=== PATIENT | female | born 1990 | race Caucasian/White ===

== ENCOUNTER → 2018-03-08 | Outpatient (CLI) | payer OTHER ==
[~2018-03-08] MED LIST: BUPRTAB PO; CEPH500C PO; ETON1IMP2 INTRAD; LEVO100T7 PO; OXYC-90 PO
--- NOTE | 2018-03-08 09:48 | DIAGNOSTIC IMAGING REPORT ---
MRI THE LEFT ANKLE NO CONTRAST CLINICAL HISTORY: Left ankle skin ulceration status post surgery COMPARISON STUDY: Conventional radiograph dated 01/22/2018 FINDINGS: Imaging was performed in the sagittal, axial, and coronal planes. The patient is status post a lateral metallic plating of a distal fibular fracture. This results in significant ferromagnetic artifact due to magnetic field inhomogeneity. The soft tissues adjacent to the distal fibula cannot be evaluated due to the overlying artifact. There are no marrow signal abnormalities within the tibia given the limitations of the study. IMPRESSION: 1. Postsurgical changes and artifact secondary to distal fibular orthopedic plating 2. The reported cutaneous lesions located at the level of the surgery are not visible on MRI secondary to artifact from the metallic plating. Electronically signed by: Oren Comer M.D. 03/08/2018 9:47 AM Dictated Date/Time: 03/08/2018 9:08 AM
== END | disposition home or self-care (01) ==
LOC: C.MRI 07:45
PROVIDERS: ATTEND Emergency Medicine
DX: S81.802A Unspecified open wound, left lower leg, initial encounter (principal); X58.XXXA Exposure to other specified factors, initial encounter

== ENCOUNTER 2018-03-26 20:29 | Emergency (ER) | payer OTHER ==
[~2018-03-26] VITALS: Ht 160 cm; Wt 88.0 kg
[~2018-03-26 20:29] MED LIST changes: -CLIN300C2 PO; -IBUP-1050 PO
[2018-03-26 20:32] VITALS: TEMP 36.8; Ht 160 cm; Wt 88.0 kg
[2018-03-26] MEDS ORDERED: SODIUM CHLORIDE 0.9% 1000ML 1,000 ML IV STA (21:13)
--- NOTE | 2018-03-26 21:49 | EMERGENCY ROOM VISIT NOTE ---
ED Visit Note First contact with patient: 20:47 CHIEF COMPLAINT: Left ankle pain, redness and swelling HISTORY OF PRESENTING ILLNESS: This is a 27-year-old female who presents to the emergency department by private vehicle with concern for postsurgical infection of her left ankle. She states that she has been having increasing pain over the past 4-5 days, she noticed that the area became red and swollen yesterday and has gotten progressively worse today. She describes the pain as a deep stabbing pain, constant, worse with walking in the ankle, better with rest, currently rates as 9/10. She has had some low-grade fevers of 99.5 with chills and associated nausea, and has been feeling weak, states "I just do not feel good today." She had ORIF with a plate and screws [address] Rendon. She states that she did develop some wounds over the incision and was followed by the wound clinic for this, she states she had wound cultures and was treated with a course of Keflex, which fully healed up the wound on her skin. She completed antibiotics 1 week ago. She states that the pain started a few days after stopping the antibiotics. She denies any open wounds or drainage from the incision site currently. She denies any symptoms of headaches , neck pain or stiffness, chest pain, shortness of breath, dizziness or syncope , abdominal pain, back pain, numbness or tingling of the extremities, urinary symptoms, or unusual rash. Patient states that she was seen by Dr. Rendon in clinic this morning, had blood work done which is pending per patient, she states that her pain and redness has gotten worse since being seen this morning , and she was feeling so terrible, which prompted her to seek evaluation in the ED. REVIEW OF SYSTEMS: A complete 10 point review of systems was reviewed with the patient with pertinent positives and negatives as per history of present illness. All else were negative. PAST MEDICAL HISTORY: Hypothyroidism, depression. Ankle surgery as above. SOCIAL HISTORY: Lives at home. She is a current everyday smoker. ALLERGIES: Reviewed in chart, see below. PHYSICAL EXAM: CONSTITUTIONAL: Pleasant and cooperative. No acute distress and nontoxic- appearing. Mildly dehydrated, but otherwise well appearing and well nourished. HEENT: Normocephalic, atraumatic. Pupils equal, round and reactive to light, EOMI. TMs normal. Pharynx normal. Tacky mucous membranes. NECK: Supple, full active range of motion without discomfort. RESPIRATORY: Clear to auscultation bilaterally with no wheezing, crackles, rhonchi or stridor. Equal expansion bilaterally. CARDIOVASCULAR: Regular rate and rhythm with no murmurs, rubs or gallops. Normal peripheral perfusion. No edema. GASTROINTESTINAL: Soft, nontender, nondistended. No palpable masses or HSM. Bowel sounds present in all quadrants. MUSCULOSKELETAL: There is a well-healed surgical incision on the lateral aspect of the left ankle. There is circumferential erythema and edema of the left ankle extending to the dorsum of the foot, hot to touch, tender to palpation. Indurated, but no areas of fluctuance, pointing, or drainage. Increased pain with ROM of the left ankle. Full range of motion of all other joints without discomfort. INTEGUMENTARY: No rash or other significant dermatologic conditions noted. NEUROLOGIC: Alert and oriented X 4 with normal affect. Normal strength and sensation in all 4 extremities. No focal neurologic deficits noted. Normal speech. ED COURSE AND MEDICAL DECISION MAKING: CC: Patient presenting with complaint of left ankle pain, redness, swelling, concern for postoperative infection DIFFERENTIAL DIAGNOSIS: Includes, but not limited to cellulitis, postsurgical infection, osteomyelitis, abscess, sepsis/bacteremia, among others. INTERPRETATION OF LABS: Mild leukocytosis with left shift, no anemia, normal platelets, no significant electrolyte abnormalities, normal renal function, normal liver enzymes. Coagulation factors within normal limits. Elevated CRP, ESR normal. Serum negative. IMAGING: L ANKLE MIN 3 VIEWS ROUTINE CLINICAL HISTORY: Evaluate post-op infection, osteomyelitis. COMPARISON: Left ankle radiographs January 22, 2018 and MRI of the left ankle March 08, 2018. FINDINGS: Distal left fibular plate and screws are noted. Hardware is intact. There is no unexpected radiopaque foreign body. Moderate lateral ankle soft tissue swelling is noted. Fracture alignment appears anatomic. Fracture line remains evident. Interval healing is noted. There is no ankle mortise widening. There is no radiographic evidence of osteomyelitis. IMPRESSION: 1. Status post distal left fibular internal fixation. Hardware intact. No radiographic evidence of osteomyelitis. Anatomic alignment of fracture. Partial interval healing. Fracture line nearly imperceptible. 2. Moderate lateral ankle soft tissue swelling. MEDICATION RECONCILIATION: I attest that I have personally reviewed the patient 's current medication list. INITIAL VITAL SIGNS REVIEW: I reviewed the patient's initial vital signs and interpret them as follows: T: Afebrile; BP: Hypertensive; HR: Within normal limits; RR: Within normal limits; Pulse Ox: Within normal limits on room air. Blood pressure screening: The patient was found to have an elevated blood pressure, which was felt to be situational. SUMMARY: Patient was evaluated at bedside, history and physical exam performed. Patient is alert and oriented, in no acute distress, resting calmly in the stretcher. There is moderate swelling, erythema, and warmth of the left ankle, circumferential, tender to palpation. No drainage from the incision site, no open wounds or fluctuance appreciated. Orders were placed at bedside for labs, blood cultures 2 and lactic acid, IV fluids for hydration, IV Toradol for pain, ankle x-ray to evaluate for osteomyelitis and hardware integrity. Patient discussed with Dr. Crawford, who agrees with my assessment and plan. Labs and imaging reviewed as above. Mild leukocytosis with elevated CRP. No evidence of osteomyelitis on x-ray and fracture appears to be well-healed. I spoke with Dr. Ford, Orthopedic Surgery, he recommended giving IV dose of clindamycin and sending out on PO clindamycin to trial outpatient antibiotic course, and have her return for worsening symptoms. Patient reassessed multiple times throughout ED stay, she has remained stable, afebrile, and reports her pain is improved with Toradol. Patient was updated on all results and plan for discharge, she was comfortable with this plan. She was encouraged to follow closely with her orthopedic surgeon, she has a scheduled appointment this week. Rx for clindamycin was sent to the pharmacy and the patient was educated regarding this medication. Patient was also given strict return precautions should her symptoms worsen, she verbalized understanding. Skin marking of the cellulitic area was performed prior to discharge. Patient was discharged home in stable condition and ambulatory. Current/Historical Medications Scheduled Bupropion Hcl (Wellbutrin Xl), 150 MG PO QAM Clindamycin Hcl (Cleocin), 300 MG PO QID Etonogestrel (Nexplanon), 68 MG INTRAD UD Levothyroxine Sodium (Levothyroxine Sodium), 100 MCG PO DAILY Allergies Coded Allergies: Sulfa Antibiotics (Verified Allergy, Mild, [facility], 01/22/18) Vital Signs Date Time Temp Pulse Resp B/P (MAP) Pulse Ox O2 Delivery O2 Flow Rate FiO2 03/26/18 23:42 81 18 131/84 99 03/26/18 22:04 78 03/26/18 20:32 36.8 90 16 151/112 96 Room Air Laboratory Results 03/26/18 21:38 Red Blood Count 4.32, Mean Corpuscular Volume 85.0, Mean Corpuscular Hemoglobin 27.8, Mean Corpuscular Hemoglobin Concent 32.7, Mean Platelet Volume 9.7, Neutrophils (%) (Auto) 59.7, Lymphocytes (%) (Auto) 30.3, Monocytes (%) (Auto) 6.1, Eosinophils (%) (Auto) 3.2, Basophils (%) (Auto) 0.3, Neutrophils # (Auto) 6.70, Lymphocytes # (Auto) 3.40, Monocytes # (Auto) 0.69, Eosinophils # (Auto) 0.36, Basophils # (Auto) 0.03 03/26/18 21:38 Test 03/26/18 21:38 White Blood Count 11.22 K/uL (4.8-10.8) Red Blood Count 4.32 M/uL (4.2-5.4) Hemoglobin 12.0 g/dL (12.0-16.0) Hematocrit 36.7 % (37-47) Mean Corpuscular Volume 85.0 fL (80-100) Mean Corpuscular Hemoglobin 27.8 pg (25-34) Mean Corpuscular Hemoglobin Concent 32.7 g/dl (32-36) Platelet Count 309 K/uL (130-400) Mean Platelet Volume 9.7 fL (7.4-10.4) Neutrophils (%) (Auto) 59.7 % Lymphocytes (%) (Auto) 30.3 % Monocytes (%) (Auto) 6.1 % Eosinophils (%) (Auto) 3.2 % Basophils (%) (Auto) 0.3 % Neutrophils # (Auto) 6.70 K/uL (1.4-6.5) Lymphocytes # (Auto) 3.40 K/uL (1.2-3.4) Monocytes # (Auto) 0.69 K/uL (0.11-0.59) Eosinophils # (Auto) 0.36 K/uL (0-0.5) Basophils # (Auto) 0.03 K/uL (0-0.2) RDW Standard Deviation 44.7 fL (36.4-46.3) RDW Coefficient of Variation 14.2 % (11.5-14.5) Immature Granulocyte % (Auto) 0.4 % Immature Granulocyte # (Auto) 0.04 K/uL (0.00-0.02) Erythrocyte Sedimentation Rate 18 mm/hr (0-21) Prothrombin Time 10.0 SECONDS (9.0-12.0) Prothromb Time International Ratio 1.0 (0.9-1.1) Activated Partial Thromboplast Time 29.4 SECONDS (21.0-31.0) Partial Thromboplastin Ratio 1.1 Anion Gap 10.0 mmol/L (3-11) Est Creatinine Clear Calc Drug Dose 138.0 ml/min Estimated GFR () 142.0 Estimated GFR (Non- 122.5 BUN/Creatinine Ratio 13.5 (10-20) Lactic Acid Level 1.8 mmol/L (0.4-2.0) Calcium Level 8.3 mg/dl (8.5-10.1) Total Bilirubin 0.2 mg/dl (0.2-1) Aspartate Amino Transf (AST/SGOT) 12 U/L (15-37) Alanine Aminotransferase (ALT/SGPT) 26 U/L (12-78) Alkaline Phosphatase 88 U/L (45-117) C-Reactive Protein 4.34 mg/dl (0-0.29) Total Protein 7.3 gm/dl (6.4-8.2) Albumin 3.5 gm/dl (3.4-5.0) Globulin 3.8 gm/dl (2.5-4.0) Albumin/Globulin Ratio 0.9 (0.9-2) Human Chorionic Gonadotropin, Qual NEG (NEG) Medications Administered Medications (Trade) Dose Ordered Sig/Sergo Route Start Time Stop Time Status Last Admin Dose Admin Sodium Chloride 1,000 ml @ 999 mls/hr Q1H1M STAT IV 03/26/18 21:13 03/26/18 22:13 DC 03/26/18 21:57 999 MLS/HR Clindamycin Phosphate (Cleocin 600mg/ 54ml D5W) 600 mg ONE ONCE IV 03/26/18 23:15 03/26/18 23:16 DC 03/26/18 23:14 600 MG Ketorolac Tromethamine (Toradol Inj) 15 mg NOW STAT IV 03/26/18 23:17 03/26/18 23:18 DC 03/26/18 23:18 15 MG Departure Information Impression Primary Impression: Cellulitis of right ankle Dispostion Home / Self-Care Condition GOOD Prescriptions Clindamycin Hcl (CLEOCIN) 300 Mg Cap 300 MG PO QID for 7 Days, #28 CAP Prov: Elvia Acevedo CRNP 03/26/18 Referrals Raymond Jamison MD (PCP) Patient Instructions ED Infec Skin Cellulitis, [facility] Additional Instructions You were seen in the Emergency Department for cellulitis of your left ankle. You have been prescribed clindamycin to be taken 4 times a day for 7 days. This medication is an antibiotic. Stop this medication and contact a medical provider if you were to develop any significant adverse side effects including: wheezing, shortness of breath, passing out, vomiting, or a diffuse rash. Always take antibiotics as directed and COMPLETE the ENTIRE course regardless of the improvement of your symptoms. Look for signs of worsening infection of the wound including: increased pain, worsening swelling, foul discharge, spreading redness or streaking up the leg, fevers >100.5, or feeling ill. If any of these are noticed you should return to the Emergency Department for further assessment and treatment. For pain control, you can use the following [id number] medicines (if >12 yo): - Extra strength (500mg/tab) Tylenol (acetaminophen) 1-2 tabs every 6-8 hours as needed. Do not exceed 6 tablets in a 24 hour period. Avoid taking more than 3 grams (3000 mg) of Tylenol per day. This includes any other sources of acetaminophen you may take on a regular basis. - Regular strength (200 mg/tab) Advil (ibuprofen) 3 tabs every 6 hours as needed. Do not exceed a dose of 2400 mg per day. - For best results, alternate between Tylenol and Advil every 3-4 hours. Apply warm compresses to the area to help with pain and also to help improve the infection. Keep leg elevated as much as possible to help reduce swelling. Follow up with your surgeon at your scheduled appointment next week, or sooner for any worsening symptoms. Return to the emergency department if your symptoms worsen despite treatment course outlined above. Work Instructions Return To Work: 3 days
[2018-03-26 21:54] LABS: BASO % 0.3 %; BASO ABS # 0.03 K/uL (0-0.2); EOS % 3.2 %; EOS ABS # 0.36 K/uL (0-0.5); HEMATOCRIT 36.7 % (37-47); IG# 0.04 K/uL (0.00-0.02); LYMPH % 30.3 %; MEAN CORPUSCULAR HEMOGLOBIN 27.8 pg (25-34); MEAN CORPUSCULAR HGB CONC 32.7 g/dl (32-36); MEAN PLATELET VOLUME 9.7 fL (7.4-10.4); MONO % 6.1 %; MONO ABS # 0.69 K/uL (0.11-0.59); NEUT % 59.7 %; PLATELET COUNT 309 K/uL (130-400); RED CELL DISTRIBUTION WIDTH CV 14.2 % (11.5-14.5); RED CELL DISTRIBUTION WIDTH SD 44.7 fL (36.4-46.3); WHITE BLOOD COUNT 11.22 K/uL (4.8-10.8)
[2018-03-26 22:09] LABS: PTT PATIENT 29.4 SECONDS (21.0-31.0)
--- NOTE | 2018-03-26 22:11 | DIAGNOSTIC IMAGING REPORT ---
L ANKLE MIN 3 VIEWS ROUTINE CLINICAL HISTORY: Evaluate post-op infection, osteomyelitis. COMPARISON: Left ankle radiographs January 22, 2018 and MRI of the left ankle March 08, 2018. FINDINGS: Distal left fibular plate and screws are noted. Hardware is intact. There is no unexpected radiopaque foreign body. Moderate lateral ankle soft tissue swelling is noted. Fracture alignment appears anatomic. Fracture line remains evident. Interval healing is noted. There is no ankle mortise widening. There is no radiographic evidence of osteomyelitis. IMPRESSION: 1. Status post distal left fibular internal fixation. Hardware intact. No radiographic evidence of osteomyelitis. Anatomic alignment of fracture. Partial interval healing. Fracture line nearly imperceptible. 2. Moderate lateral ankle soft tissue swelling. Electronically signed by: Herman Hampton M.D. 03/26/2018 10:10 PM Dictated Date/Time: 03/26/2018 10:07 PM
[2018-03-26 22:13] LABS: ALBUMIN 3.5 gm/dl (3.4-5.0); CALCIUM 8.3 mg/dl (8.5-10.1); CREATININE 0.65 mg/dl (0.60-1.20); POTASSIUM 3.8 mmol/L (3.5-5.1); TOTAL PROTEIN 7.3 gm/dl (6.4-8.2)
[2018-03-26] MEDS ORDERED: CLIN300C2 PO (23:10)
[2018-03-26] MEDS ORDERED: CLINDAMYCIN 600 MG/54 ML D5W IV ONE (23:15)
[2018-03-26] MEDS ORDERED: KETOROLAC TROMETHAMINE 15 MG/ML VIAL ONE (23:15)
[2018-03-26] MEDS ORDERED: KETOROLAC TROMETHAMINE 30 MG/ML VIAL IV STA (23:17)
[2018-03-26 23:42] VITALS: BP 131/84; PULSE 81; O2SAT 99
== END 2018-03-26 23:42 | disposition home or self-care (01) ==
LOC: C.EDB 20:30 → C.EDA 23:42
DX: L03.115 Cellulitis of right lower limb (principal); E86.0 Dehydration; Z98.890 Other specified postprocedural states; E03.9 Hypothyroidism, unspecified; F32.9 Major depressive disorder, single episode, unspecified; Z79.3 Long term (current) use of hormonal contraceptives; F17.200 Nicotine dependence, unspecified, uncomplicated; Z88.2 Allergy status to sulfonamides

== ENCOUNTER → 2018-03-26 | Outpatient (CLI) | payer OTHER ==
[~2018-03-26] MED LIST changes: -CEPH500C PO; +CLIN300C2 PO; +IBUP-1050 PO
[2018-03-26 14:36] LABS: BASO % 0.3 %; BASO ABS # 0.03 K/uL (0-0.2); EOS % 2.6 %; HEMATOCRIT 38.8 % (37-47); IG# 0.04 K/uL (0.00-0.02); LYMPH % 24.3 %; LYMPH ABS # 2.75 K/uL (1.2-3.4); MEAN CELL VOLUME 85.7 fL (80-100); MEAN CORPUSCULAR HEMOGLOBIN 28.7 pg (25-34); MEAN CORPUSCULAR HGB CONC 33.5 g/dl (32-36); MEAN PLATELET VOLUME 9.6 fL (7.4-10.4); MONO % 5.7 %; MONO ABS # 0.65 K/uL (0.11-0.59); NEUT % 66.7 %; NEUT ABS # 7.56 K/uL (1.4-6.5); PLATELET COUNT 327 K/uL (130-400); RED CELL DISTRIBUTION WIDTH CV 14.3 % (11.5-14.5); RED CELL DISTRIBUTION WIDTH SD 45.1 fL (36.4-46.3); WHITE BLOOD COUNT 11.33 K/uL (4.8-10.8)
== END | disposition home or self-care (01) ==
LOC: C.LAB 13:55
DX: Z96.7 Presence of other bone and tendon implants (principal)

== ENCOUNTER → 2018-03-31 | Outpatient (CLI) | payer OTHER ==
[~2018-03-31] MED LIST changes: +ACET-24 PO; +CEPH500C2 PO; +CLIN300C2 PO; +IBUP-1050 PO; -OXYC-90 PO; +RXC5 PO
--- NOTE | 2018-03-31 10:33 | DIAGNOSTIC IMAGING REPORT ---
TWO VIEW CHEST CLINICAL HISTORY: Preoperative examination. FINDINGS: PA and lateral chest radiographs are obtained. No prior studies are available for comparison at the time of dictation. The cardiomediastinal silhouette is unremarkable. The lungs and pleural spaces are clear. There is no pneumothorax. The bony thorax appears intact. IMPRESSION: No active disease in the chest. Electronically signed by: Ashish Jim M.D. 03/31/2018 10:32 AM Dictated Date/Time: 03/31/2018 10:31 AM
[2018-03-31 11:10] LABS: BASO % 0.5 %; BASO ABS # 0.04 K/uL (0-0.2); EOS % 2.4 %; EOS ABS # 0.18 K/uL (0-0.5); HEMATOCRIT 38.3 % (37-47); HEMOGLOBIN 12.7 g/dL (12.0-16.0); IG# 0.03 K/uL (0.00-0.02); LYMPH % 32.3 %; LYMPH ABS # 2.44 K/uL (1.2-3.4); MEAN CELL VOLUME 84.9 fL (80-100); MEAN CORPUSCULAR HEMOGLOBIN 28.2 pg (25-34); MEAN CORPUSCULAR HGB CONC 33.2 g/dl (32-36); MEAN PLATELET VOLUME 9.8 fL (7.4-10.4); MONO % 5.8 %; MONO ABS # 0.44 K/uL (0.11-0.59); NEUT % 58.6 %; NEUT ABS # 4.43 K/uL (1.4-6.5); PLATELET COUNT 388 K/uL (130-400); RED CELL DISTRIBUTION WIDTH CV 13.8 % (11.5-14.5); RED CELL DISTRIBUTION WIDTH SD 42.5 fL (36.4-46.3); WHITE BLOOD COUNT 7.56 K/uL (4.8-10.8)
== END | disposition home or self-care (01) ==
LOC: C.RAD 10:07
DX: Z01.818 Encounter for other preprocedural examination (principal)